=== PATIENT | male | born 1985 | race Caucasian/White ===

== ENCOUNTER 2019-08-14 13:27 | Emergency (ER) | payer OTHER ==
[~2019-08-14] VITALS: Ht 180.3 cm; Wt 79.4 kg
[2019-08-14] MEDS ORDERED: KETOROLAC TROMETHAMINE 30 MG/ML VIAL IV STA (13:34)
--- NOTE | 2019-08-14 15:20 | Diagnostic Imaging Report ---
EXAM: CT Abdomen and Pelvis WITHOUT intravenous contrast INDICATION: Right abdominal pain. COMPARISON: None. TECHNIQUE: Abdomen and pelvis were scanned utilizing a multidetector helical scanner from the lung base to the pubic symphysis without administration of IV contrast. Coronal and sagittal reformations were obtained. IV CONTRAST: None ORAL CONTRAST: Water COMPLICATIONS: None RADIATION DOSE: Total DLP: 591.8 mGy*cm Dose modulation, iterative reconstruction, and/or weight based adjustment of the mA/kV was utilized to reduce the radiation dose to as low as reasonably achievable. FINDINGS: LOWER THORAX: Normal. HEPATOBILIARY: No focal hepatic lesions. No biliary ductal dilatation. The gallbladder appears unremarkable. SPLEEN: No splenomegaly. PANCREAS: No focal masses or ductal dilatation. ADRENALS: No adrenal nodules. KIDNEYS/URETERS: No hydronephrosis. 3 mm nonobstructive renal calculi at the right renal lower pole and left renal lower pole. PELVIC ORGANS/BLADDER: Phleboliths in the pelvis. PERITONEUM / RETROPERITONEUM: No free air or fluid. LYMPH NODES: No lymphadenopathy. VESSELS: Unremarkable. GI TRACT: No abnormal bowel thickening. No bowel obstruction. Normal appendix. BONES AND SOFT TISSUES: No acute osseous injury. No suspicious lytic or blastic lesions. IMPRESSION: 3 mm right and left lower pole renal calculi. No hydronephrosis. No abnormal bowel wall thickening or bowel obstruction. Normal appendix. Signed by: Mara Romero MD on 08/14/2019 3:17 PM
[2019-08-14 15:44] VITALS: BP 132/88
== END 2019-08-14 15:47 | disposition home or self-care (01) ==
LOC: FSED 13:27
DX: M54.5 Low back pain (principal); R39.15 Urgency of urination; N20.0 Calculus of kidney
CPT/HCPCS: 74176; 81003; 99284; J1885